=== PATIENT | male | born 1955 | race Two or more races ===

== ENCOUNTER 2019-05-26 17:25 | Emergency (ER) | payer MEDICAID ==
[~2019-05-26] VITALS: Ht 177.8 cm; Wt 77.1 kg
[2019-05-26] MEDS ORDERED: KETOROLAC TROMETHAMINE INJ 30 MG/ML VIAL IV ONE (18:00)
[2019-05-26] MEDS ORDERED: ONDANSETRON HCL/PF 4 MG/2 ML VIAL IVP ONE (18:00)
[2019-05-26] MEDS ORDERED: ASPIRIN 325 MG TABLET PO ONE (18:00)
[2019-05-26] MEDS ORDERED: IV NS 0.9% 1,000 ML BAG IV ONE (18:00)
[2019-05-26] MEDS ORDERED: ASPIRIN EC 325 MG TABLET.DR PO ONE (18:20)
[2019-05-26] MEDS ORDERED: ONDANSETRON HCL/PF 4 MG/2 ML VIAL ONE (18:20)
[2019-05-26] MEDS ORDERED: KETOROLAC TROMETHAMINE 15 MG/ML VIAL ONE (18:20)
[2019-05-26] MEDS ORDERED: ASPIRIN 325 MG TABLET ONE (18:21)
[2019-05-26 18:25] LABS: BASOPHILS # (AUTO) 0.1 /CMM (0.0-0.2); BASOPHILS % (AUTO) 0.7 % (0.0-2.0); EOSINOPHILS % (AUTO) 0.7 % (0.0-6.0); HEMATOCRIT 56 % (39-51); LYMPHOCYTES # (AUTO) 1.3 /CMM (0.8-4.8); LYMPHOCYTES % (AUTO) 7.4 % (20.0-44.0); MEAN CORPUSCULAR HGB CONC 34 g/dl (31.0-36.0); MEAN CORPUSCULAR VOLUME 95 fL (80-96); MONOCYTES # (AUTO) 0.9 /CMM (0.1-1.30); MONOCYTES % (AUTO) 5.4 % (2.0-12.0); NEUTROPHILS % (AUTO) 85.8 % (43.0-81.0); PLATELET COUNT (AUTO) 226 /CMM (150-450); RED BLOOD CELL COUNT(AUTO) 5.92 MIL/uL (4.5-6.0); WHITE BLOOD COUNT (AUTO) 17.5 K/uL (4.3-11.0)
[2019-05-26 18:42] LABS: CALCIUM, SERUM 9.8 mg/dL (8.5-10.1); CARBON DIOXIDE 30 mmol/L (21-32); CHLORIDE 98 mmol/L (98-107); CREATININE 1.6 mg/dL (0.6-1.3); GLUCOSE 134 mg/dL (74-106); POTASSIUM 3.1 mmol/L (3.5-5.1); SODIUM SERUM 140 mmol/L (136-145); UREA NITROGEN, BLOOD 16 mg/dL (7-18)
[2019-05-26 19:04] LABS: ALANINE AMINOTRANSFERASE 24 U/L (12-78); ALBUMIN 4.4 g/dL (3.4-5.0); ALKALINE PHOSPHATASE 80 U/L (46-116); ASPARTATE AMINOTRANSFERASE 27 U/L (15-37); BILIRUBIN,DIRECT 0.2 mg/dL (0.0-0.2); BILIRUBIN,TOTAL 1.8 mg/dL (0.2-1.0); LIPASE 78 U/L (73-393); TOTAL PROTEIN, SERUM 7.9 g/dL (6.4-8.2)
[2019-05-26 19:06] LABS: BAND % (MANUAL) 3 % (0.0-5.0); LYMPHOCYTES % (MANUAL) 5 % (16-48); MONOCYTES % (MANUAL) 7 % (0-11.0); NEUTROPHILS % (MANUAL) 85 (42-76)
--- NOTE | 2019-05-26 19:45 | NUR ---
ACCEPTED [facility]-B NUMBER FOR REPORT NOHEMY ACCEPTING DR BARAJAS AWAITING CALL REGARDING TRANSPORT ETA
--- NOTE | 2019-05-26 20:08 | NUR ---
REPORT GIVEN TO [facility]. AWAITING FOR TRANSPORT ETA
[2019-05-26 20:22] VITALS: BP 175/86
--- NOTE | 2019-05-26 20:27 | NUR ---
[facility] ETA 2131
--- NOTE | 2019-05-26 20:27 | NUR ---
PT IS RESTING COMFORTABLY. NO ACUTE DISTRESS NOTED. DENIES CHEST PAIN T THIS TIME
[2019-05-26] MEDS ORDERED: hydrALAZINE HCL IV 20 MG VIAL ONE (21:38)
--- NOTE | 2019-05-26 21:44 | NUR ---
REPORT GIVEN TO EMS. STABLE FOR TRANSFER
--- NOTE | 2019-05-26 21:47 | NUR ---
HYDRALAZINE GIVEN 20 MG IV PER MD ORDER BP 181/106
--- NOTE | 2019-05-26 21:55 | NUR ---
Note undone in EDM - 05/26/19 at 2155 by KAVON IV removed. Catheter intact and site benign. Pressure and 4x4 applied to site. No bleeding noted.Patient Tranfers to outside Facility Physician: DR BARAJAS Location: [facility]
--- NOTE | 2019-05-26 21:56 | NUR ---
PT TRANSFERRED IN STABLE CONDITION
[2019-05-26] MEDS ORDERED: hydrALAZINE HCL IV 20 MG VIAL IV ONE (22:00)
== END 2019-05-26 21:59 | disposition short-term general hospital (02) ==
LOC: ER 17:25
DX: R07.89 Other chest pain (principal); R00.0 Tachycardia, unspecified; Z60.2 Problems related to living alone
CPT/HCPCS: 36415; 71045; 80048; 80076; 82550; 83690; 84484; 85025; 87081; 93005; 96374; 96375; 99285; J0360; J1885; J2405; J7030